=== PATIENT | female | born 1995 | race Two or more races ===

== ENCOUNTER 2018-06-25 19:57 | Emergency (ER) | payer OTHER ==
[~2018-06-25] VITALS: Ht 160 cm; Wt 66.2 kg
[2018-06-25] MEDS ORDERED: IV NS 0.9% 1,000 ML BAG IV ONE (20:00)
--- NOTE | 2018-06-25 20:02 | NUR ---
PT BIBA IN [employer]. AFTER THE PT FELLDOWN STAIRS. PT AWAKE, ALERT, AGITATED . PLACE THE PT ON CARDIAC MONITORING . PT ON ROOM AIR. SAT 98%. NO ACUTE DISTRESS MOTED. WAITING FOR MD EVALUATION.
[2018-06-25 20:17] LABS: BASOPHILS % (AUTO) 0.8 % (0.0-2.0)
[2018-06-25 20:20] LABS: BASOPHILS # (AUTO) 0.1 /CMM (0.0-0.2); EOSINOPHILS % (AUTO) 0.2 % (0.0-6.0); HEMATOCRIT 50 % (33-45); HEMOGLOBIN 16.9 g/dL (11.5-14.8); LYMPHOCYTES # (AUTO) 2.1 /CMM (0.8-4.8); LYMPHOCYTES % (AUTO) 12.5 % (20.0-44.0); MEAN CORPUSCULAR HGB CONC 34 g/dl (31.0-36.0); MEAN CORPUSCULAR VOLUME 92 fL (82-100); MONOCYTES # (AUTO) 0.2 /CMM (0.1-1.30); MONOCYTES % (AUTO) 1.5 % (2.0-12.0); NEUTROPHILS # (AUTO) 14.2 /CMM (1.8-8.9); PLATELET COUNT (AUTO) 307 /CMM (150-450); RDW COEFFICIENT OF VARIATION 12.5 (11.5-15.0); RED BLOOD CELL COUNT(AUTO) 5.41 MIL/uL (4.0-5.2); WHITE BLOOD COUNT (AUTO) 16.6 K/uL (4.3-11.0)
[2018-06-25 20:28] LABS: CALCIUM, SERUM 8.7 mg/dL (8.5-10.1); POTASSIUM 3.8 mmol/L (3.5-5.1)
[2018-06-25] MEDS ORDERED: HALOPERIDOL LACTATE INJ 5 MG/ML VIAL ONE (20:57)
[2018-06-25] MEDS ORDERED: HALOPERIDOL LACTATE INJ 5 MG/ML VIAL IV ONE (21:00)
--- NOTE | 2018-06-25 21:17 | NUR ---
URINE SAMPLE COLLECTED.
[2018-06-25] MEDS ORDERED: CT SWABBABLE VALVE TRANS SET 1 EA INFUS.SET MC ONE (21:43)
[2018-06-25] MEDS ORDERED: IOHEXOL-300 100 ML VIAL IV ONE (21:43)
[2018-06-25] MEDS ORDERED: IV NS 0.9% 250 ML IV ONE (21:43)
--- NOTE | 2018-06-25 22:09 | NUR ---
CT AND X RAY COMPLETED.
--- NOTE | 2018-06-26 00:43 | NUR ---
PT DISCHARGED FROM [facility] AT 0045, PT IS UNDER CUSTODY. VITALS STABLE.
[2018-06-26 01:02] VITALS: BP 101/59
== END 2018-06-26 01:08 ==
LOC: ER 19:59
DX: S80.02XA Contusion of left knee, initial encounter (principal); S80.01XA Contusion of right knee, initial encounter; S00.83XA Contusion of other part of head, initial encounter; F10.129 Alcohol abuse with intoxication, unspecified; Z60.2 Problems related to living alone; W10.8XXA Fall (on) (from) other stairs and steps, initial encounter; Y93.89 Activity, other specified; Y92.89 Other specified places as the place of occurrence of the external cause; Y99.8 Other external cause status; Y90.8 Blood alcohol level of 240 mg/100 ml or more
CPT/HCPCS: 36415; 70450; 70486; 71260; 72125; 73560 ×2; 74177; 80048; 80305; 84703; 85025; 85730; 93005; 96374; 99285; A4606; G0480; J1630; J7030; J7050; Q9967; Z7610